=== PATIENT | male | born 1960 ===

== ENCOUNTER 2021-07-02 13:59 | Emergency (ER) | payer MEDICARE ==
[~2021-07-02] VITALS: Ht 182.9 cm; Wt 70.2 kg
[2021-07-02] MEDS ORDERED: TETanus/Pertussis (Acell)/Diphther VAC/PF (Tdap-Adult) 0.5ml syringe IMVAC ONE (21:20)
[2021-07-02 22:10] VITALS: BP 122/85
== END 2021-07-02 22:21 | disposition home or self-care (01) ==
LOC: ER 14:00
DX: S61.451A Open bite of right hand, initial encounter (principal); M79.89 Other specified soft tissue disorders; R60.0 Localized edema; I50.9 Heart failure, unspecified; E11.9 Type 2 diabetes mellitus without complications; Z20.3 Contact with and (suspected) exposure to rabies; W54.0XXA Bitten by dog, initial encounter; Y93.89 Activity, other specified; Y92.89 Other specified places as the place of occurrence of the external cause; Y99.8 Other external cause status
CPT/HCPCS: 90471; 90715; 93971; 99284